=== PATIENT | male | born 1970 | race African-American/Black ===

== ENCOUNTER 2019-04-30 21:08 | Emergency (ER) | payer OTHER ==
[2019-04-30 21:19] VITALS: TEMP 98.6; BMI 30.5
--- NOTE | 2019-04-30 21:38 | PDOC ---
History of Present Illness - General Chief Complaint: Edema Stated Complaint: L SIDE FACE SWOLLEN Time Seen by Provider: 04/30/19 21:38 History Source: Patient Exam Limitations: No Limitations - History of Present Illness Initial Comments: 04/30/19 21:53 Flaquito Ryder is a 48y previously healthy M presenting w L face swelling and pain. Progressively worsening for past 2 weeks. After noted symptoms, went to dentist 2 wks ago, underwent dental cleaning, dental XR did not show anything concerning, given clindamycin. 3d ago went to urgent care, sinus CT showed dental infection, given higher dose clindamycin (300mg TID) and taking ibuprofen with symptoms worsening, told to return to dentist. Can still eat/ drink/open mouth. Denies fever, nausea/vomiting, trouble breathing, chest pain. Past History - Past Medical History Allergies/Adverse Reactions: Allergies Allergy/AdvReac Type Severity Reaction Status Date / Time No Known Allergies Allergy Verified 04/30/19 21:19 COPD: No - Psycho Social/Smoking Cessation Hx Smoking History: Never smoked Drug/Substance Use Hx: No Review of Systems - Review of Systems Constitutional: No: Chills, Fever HEENTM: No: Eye Pain, Recent change in vision, Nose Congestion, Throat Swelling , Mouth Swelling Respiratory: No: Cough, Shortness of Breath Cardiac (ROS): No: Chest Pain, Palpitations, Syncope ABD/GI: No: Abdominal Distended, Constipated, Diarrhea, Nausea, Vomiting : No: Burning, Dysuria, Discharge, Flank Pain, Hematuria Musculoskeletal: No: Back Pain, Muscle Pain, Neck Pain Integumentary: No: Bruising, Flushing, Lesions Neurological: No: Headache, Seizure, Tingling, Tremors Psychiatric: No: Anxiety, Depression, Stressors Endocrine: No: Excessive Sweating, Intolerance to Cold, Intolerance to Heat Hematologic/Lymphatic: No: Anemia, Blood Clots *Physical Exam - Vital Signs Last Vital Signs Temp Pulse Resp BP Pulse Ox 98.6 F 100 H 19 151/87 100 04/30/19 21:14 04/30/19 21:14 04/30/19 21:14 04/30/19 21:14 04/30/19 21:14 - Physical Exam General Appearance: Yes: Nourished, Appropriately Dressed. No: Apparent Distress HEENT: positive: EOMI, DEREK, Normal Voice, Sinus Tenderness (Left tenderness and swelling over L cheekbone), Hearing Grossly Normal, Other (Moveable mass and swelling over L zygomatic bone. No facial lesion/rash. No dental infection/ discharge in mouth. Full mouth opening/closing ROM). negative: Scleral Icterus (R), Scleral Icterus (L) Neck: positive: Supple. negative: Tender, Rigid Respiratory/Chest: positive: Lungs Clear, Normal Breath Sounds. negative: Chest Tender, Respiratory Distress, Crackles, Rales, Rhonchi, Stridor, Wheezing Cardiovascular: positive: Regular Rhythm, Regular Rate, S1, S2. negative: Edema , Murmur Integumentary: positive: Normal Color Neurologic: positive: center medical director II-XII NML intact, Fully Oriented, Alert, Normal Response, Responsive. negative: Sensory Deficit, Confused, Disoriented ED Treatment Course - LABORATORY CBC & Chemistry Diagram: 04/30/19 21:45 04/30/19 21:45 Medical Decision Making - Medical Decision Making 04/30/19 22:05 Flaquito Ryder is a 48y previously healthy M presenting w L face swelling and pain likely d/t dental abscess around L zygomatic/maxillary region over upper maxillary tooth 25. No problems breathing, afebrile, able to eat/drink w full mouth mvmt ROM. Transferred to [facility] w [facility] for dental abscess requiring drainage. Dr Sherlyn Mendoza/ Dr Bebeto Menjivar accepted patient. Ordered unasyn. Discharge - Discharge Information Problems reviewed: Yes Clinical Impression/Diagnosis: Dental abscess Condition: Good Disposition: TRANSFER ACUTE CARE/OTHER HOSP - Admission No - Follow up/Referral Referrals: Jorge Noe MD [Primary Care Provider] - - Patient Discharge Instructions - Post Discharge Activity - Transfer to Acute Care Facility Receiving Facility Name: [facility] Accepting Physician:: Dr Evita Mendoza / [place]
[2019-04-30 22:29] LABS: BASO % 1.9 % (0-2.0); HEMATOCRIT 39.5 % (35.4-49); HEMOGLOBIN 13.4 GM/dL (11.7-16.9); LYMPH % 33.1 % (8-40); MCH 29.9 pg (25.7-33.7); MEAN CELL VOLUME 88.1 fl (80-96); MEAN PLT VOLUME 9.1 fl (7.5-11.1); MONO % 12.5 % (3.8-10.2); NEUT % 49.5 % (42.8-82.8); PLATELET COUNT 183 K/MM3 (134-434); RBC 4.48 M/mm3 (4.00-5.60); RDW 15.9 % (11.9-15.9); WHITE BLOOD COUNT 8.6 K/mm3 (4.0-10.0)
[2019-04-30] MEDS ORDERED: AMPICILLIN NA/SULBACTAM NA 3 GM in SODIUM CHLORIDE 100 ML IVPB ONE (22:53)
[2019-04-30 23:06] LABS: ALBUMIN 3.7 g/dl (3.4-5.0); BILIRUBIN,TOTAL 0.3 mg/dL (0.2-1); BLOOD UREA NITROGEN 13.1 mg/dL (7-18); CALCIUM 8.5 mg/dL (8.5-10.1); CREATININE 1.1 mg/dL (0.55-1.3); N-TERMINAL BNP 61.6 pg/ml (5-125); POTASSIUM 3.9 mmol/L (3.5-5.1); TARGET CELLS FEW; TOT PROT 7.3 g/dl (6.4-8.2)
--- NOTE | 2019-04-30 23:17 | PDOC ---
Documentation entered by Ian Hunt SCRIBE, acting as scribe for Tammie Stout MD. Tammie Stout MD: This documentation has been prepared by the [employer] Nirvannie, SCRIBE, under my direction and personally reviewed by me in its entirety. I confirm that the documentation accurately reflects all work, treatment, procedures, and medical decision making performed by me. Attending Attestation - Resident Resident Name: Ricky Lambert - ED Attending Attestation I have performed the following: I have examined & evaluated the patient, The case was reviewed & discussed with the resident, I agree w/resident's findings & plan - HPI HPI: 04/30/19 22:13 The patient is a 48 year old male, with no significant past medical history, who presents to the emergency department with, 2 weeks of progressively worsening left facial swelling with associated pain. As per patient, he went to the dentist approximately 2 weeks ago for an x-ray and cleaning at which time he was also given Clindamycin for an unknown dental infection. He notes going to urgent care 3 days later and was diagnosed with a sinus infection and his Clindamycin was increased to 300 TID. He notes taking Ibuprofen without relief, prompting his arrival to the ED. He denies any change in PO intake. He denies any recent fevers, chills, headache or dizziness. He denies any recent nausea, vomit, diarrhea or constipation. He denies any recent chest pain or shortness of breath. Allergies: NKDA Primary Care Physician: Dr. Noe - Physicial Exam PE: 04/30/19 23:13 awake alert left upper gum with palp fluctuance on buccal side just past inciser above tooth 25/ 26. no trisumus noted left facial swelling. lungs clear bilat. heart rrr no mrg abd soft nt nd. . - Medical Decision Making 04/30/19 23:16 48 yo male witih facial / dental abscess. labs sent and pending. given IV unasyn d/w [facility] attending was accepted by dr Menjivar (attending), will be transfereed to ED to be seen by dental OMFS
[2019-05-01 00:08] VITALS: BP 153/91; PULSE 97
--- NOTE | 2019-05-01 11:39 | EKG ---
Test Reason : Blood Pressure : / mmHG Vent. Rate : 073 BPM Atrial Rate : 073 BPM P-R Int : 174 ms QRS Dur : 102 ms QT Int : 364 ms P-R-T Axes : 048 049 025 degrees QTc Int : 401 ms NORMAL SINUS RHYTHM INCOMPLETE RBBB EARLY REPOLARIZATION NO PREVIOUS ECGS AVAILABLE Confirmed by NABEEL BLEDSOE MD ([id number]) on 05/01/2019 11:38:48 AM Referred By: Confirmed By:NABEEL BLEDSOE MD
== END 2019-05-01 | disposition short-term general hospital (02) ==
LOC: JER 21:08
DX: K04.7 Periapical abscess without sinus (principal)
CPT/HCPCS: 36415; 80053; 82550; 82553; 83880; 84484; 85025; 93005; 93010; 99285-25